=== PATIENT | female | born 1950 | race Caucasian/White ===

== ENCOUNTER 2017-03-09 14:07 | Emergency (ER) | payer BC, MEDICARE ==
[~2017-03-09] VITALS: Ht 172.7 cm; Wt 130.2 kg
[~2017-03-09 14:07] MED LIST: ABILIFY5 MG PO; ACTIGALL300 MG PO; ALBUTEROL0.63 MG/3; ASPIRIN81 M1 PO; AVAPRO300 MG PO; FENOFIBRATE145 MG PO; GABAPENTIN300 MG PO; GLUCOPHAGE500 MG PO; HUMULIN R100 UNIT/2 SC; KLOR-CON M2020 MEQ PO; LASIX20 MG PO; LEVAQUIN250 MG PO; LEVEMIR100 UNIT/1 SQ; LEVOTHROID200 MCG PO; LIPITOR40 MG PO; LOSARTAN POTAS100 MG PO; LUMIGAN2.5 M1 OP; METOPROLOL SUCC25 MG PO; NOVOLOG100 UNIT/1 SQ; PREDNISONE5 MG; SYMBICORT 16010.2 GM INH; TRAZODONE HCL150 MG PO; TUDORZA PRESS400 MCG IH; ULTRAM50 MG PO; VENLAFAXINE HC150 M1 PO; VENLAFAXINE HCL75 M1 PO; VENTOLIN HFA18 GM; VITAMIN C500 M1 PO; VITAMIN D5000 UNIT PO; XYZAL5 MG PO
[2017-03-09] MEDS ORDERED: SODIUM CHLORIDE FLUSH 10 ML SYR INJ PRN (14:45)
--- NOTE | 2017-03-09 15:18 | Diagnostic Imaging Report ---
PROCEDURE: A single AP view of the chest. COMPARISON: 03/10/16 INDICATIONS: SHORTNESS OF BREATH, CHEST PAIN FINDINGS: Lines/tubes: None. Lungs: The lungs are well inflated. Central vasculature congestion. Decreased central peribronchovascular thickening/cuffing. Pleura: There is no pleural effusion or pneumothorax. Heart and mediastinum: The heart and the mediastinum are unremarkable. Bones: No acute bony abnormality. IMPRESSION: Central vascular congestion. Decreased central peribronchovascular thickening/cuffing, when compared to prior x-ray. Dictated by: Sherif Lopez M.D. on 03/09/2017 at 15:27 Electronically approved by: Sherif Lopez M.D. on 03/09/2017 at 15:27
== END 2017-03-09 17:27 | disposition left against medical advice (07) ==
LOC: ER 14:07
DX: R06.00 Dyspnea, unspecified (principal); J44.9 Chronic obstructive pulmonary disease, unspecified; I50.9 Heart failure, unspecified; E11.9 Type 2 diabetes mellitus without complications; E03.9 Hypothyroidism, unspecified; Z79.4 Long term (current) use of insulin
CPT/HCPCS: 71010; 99282

== ENCOUNTER 2019-01-14 14:08 | Emergency (ER) | payer BC, MEDICARE ==
[~2019-01-14] VITALS: Ht 172.7 cm; Wt 130.2 kg
--- OUTSIDE RECORDS SUMMARY | 2019-01-14 14:11 | XMS REPORT ---
[facility] Address Unknown Phone Unavailable Care Team Providers Care Gallery Manager Name Role Phone SUSAN VELAZCO Unavailable Unavailable Problems This patient has no known problems. Allergies, Adverse Reactions, Alerts This patient has no known allergies or adverse reactions. Medications This patient has no known medications. Results Test Description Test Time Test Comments Text Results Atomic Results Result Comments CHEST SINGLE (NOT PORTABLE) [place] [address] Patient Name: JANY GREENE MR #: [id number] : 1950 Age/Sex: 66/F Req #: [id number] Adm Physician: Ordered by: NADIA BUSH Report #: [id number] Location: ER Room/Bed: Procedure: [id number] DX/CHEST SINGLE (NOT PORTABLE) Exam Date: 03/09/17 Exam Time: 1450 REPORT STATUS: Signed PROCEDURE: A single AP view of the chest. COMPARISON: 03/10/16 INDICATIONS: SHORTNESS OF BREATH, CHEST PAIN FINDINGS: Lines/tubes: None. Lungs: The lungs are well inflated. Central vasculature congestion. Decreased central peribronchovascular thickening/cuffing. Pleura: There is no pleural effusion or pneumothorax. Heart and mediastinum: The heart and the mediastinum are unremarkable. Bones: No acute bony abnormality. IMPRESSION: Central vascular congestion. Decreased central peribronchovascular thickening/cuffing, when compared to prior x-ray. Dictated by: Sherif Barrientos M.D. on 03/09/2017 at 15:27 Electronically approved by: Sherif Barrientos M.D. on 03/09/2017 at 15:27 Dictated By: SHERIF BARRIENTOS MD Electronical ly Signed By: SHERIF BARRIENTOS MD on 03/09/17 1527 Transcribed By: GABRIELLE on 03/09/17 1527 COPY TO: NADIA BUSH
[2019-01-14 16:29] LABS: BILIRUBIN,URINE NEGATIVE (NEGATIVE); CLARITY,URINE SL CLOUDY (CLEAR); COLOR,URINE YELLOW (YELLOW); KETONES,URINE NEGATIVE (NEGATIVE); LEUKOCYTE ESTERASE ,URINE NEGATIVE (NEGATIVE); NITRITE,URINE NEGATIVE (NEGATIVE); URINE UROBILINOGEN 0.2 mg/dL (0.2 - 1)
[2019-01-14 16:32] LABS: PROTEIN,URINE DIPSTICK 2+ (NEGATIVE)
[2019-01-14 16:46] LABS: BACTERIA,URINE MODERATE /HPF; EPITHELIAL CELLS,URINE MANY /LPF
--- NOTE | 2019-01-14 19:21 | Diagnostic Imaging Report ---
EXAM: KNEE LEFT THREE VIEWS, KNEE RIGHT THREE VIEWS DATE: 01/14/2019 5:39 PM INDICATION: ^fall, ^[id number] ^[id number] COMPARISON: None FINDINGS: Left knee: 3 views of the left knee show no displaced fracture or dislocation. Joint spaces are maintained. Small bony density adjacent to the lateral tibial spine may be degenerative or represent minimal avulsion. Anterior patellar enthesophytes are present. Extensive small vessel arterial calcification is seen. Small suprapatellar effusion. Right knee: 3 views of the right knee show no displaced fracture or dislocation. Joint spaces are maintained. There is moderate tricompartmental degenerative change. There is a small bony density in the posterior aspect of the joint space. Anterior patellar enthesophytes are present. There is a small suprapatellar effusion. IMPRESSION: 1. Small bony density adjacent to the lateral tibial spine on the left may be a degenerative osteophyte or small avulsion injury. There is a small suprapatellar effusion. 2. There are mild tricompartmental degenerative changes of the left knee and moderate degenerative changes on the right. 3. A small bony density in the posterior joint space on the right may represent a small loose body. Signed by: Dr. Abiel Pena M.D. on 01/14/2019 7:17 PM
[2019-01-14 19:47] LABS: BASOPHILS % 0.5 % (0.0-1.0); EOSINOPHILS # (AUTO) 0.5 (0.0-0.4); EOSINOPHILS % 5.8 % (0.0-6.0); HEMATOCRIT 30.7 % (34.2-44.1); HEMOGLOBIN 8.9 g/dL (12.0-16.0); LYMPHOCYTES # (AUTO) 0.7 (1.0-3.2); LYMPHOCYTES % 8.4 % (18.0-39.1); MONOCYTES # (AUTO) 0.8 (0.2-0.8); MONOCYTES % 8.9 % (4.4-11.3); NEUTROPHILS # (AUTO) 6.5 (2.1-6.9); PLATELET COUNT 215 x10e3/uL (140-360); RED BLOOD COUNT 3.07 x10e6/uL (3.6-5.1); RED CELL DISTRIBUTION WIDTH 13.6 % (11.7-14.4)
[2019-01-14 20:06] LABS: ALBUMIN 2.4 g/dL (3.5-5.0); ALBUMIN/GLOBULIN RATIO 0.7 (0.8-2.0); ANION GAP 8.6 mmol/L (8-16); CALCIUM 9.3 mg/dL (8.4-10.2); CREATININE, SERUM 1.93 mg/dL (0.57-1.11); POTASSIUM 4.6 mmol/L (3.5-5.1)
[2019-01-14 20:12] LABS: CREATINE KINASE MB 4.3 ng/mL (0-5.0)
[2019-01-14 22:18] VITALS: BP 143/73
== END 2019-01-14 22:20 | disposition home or self-care (01) ==
LOC: ER 14:08
DX: S80.02XA Contusion of left knee, initial encounter (principal); S80.01XA Contusion of right knee, initial encounter; W17.89XA Other fall from one level to another, initial encounter; Y92.008 Other place in unspecified non-institutional (private) residence as the place of occurrence of the external cause; E11.9 Type 2 diabetes mellitus without complications
CPT/HCPCS: 36415; 80053; 81001; 82270; 82550; 82553; 82948; 84484; 85025; 87086; 93005; 99284